=== PATIENT | male | born 1940 | race Caucasian/White ===

== ENCOUNTER → 2017-05-24 11:07 | Outpatient (CLI) | payer MEDICARE, BC, SELFPAY | PROVIDERS: Family Provider Family Medicine; PCP Family Medicine; Visit Provider Urology | DX: C61 Malignant neoplasm of prostate (principal) | CPT/HCPCS: 36415; 84153 ==

== ENCOUNTER → 2017-11-14 08:24 | Outpatient (CLI) | payer MEDICARE, BC, SELFPAY ==
[2017-11-14 09:26] LABS: PSA,Total- Diagnostic 0.55 ng/mL (0.0-4.0)
== END ==
PROVIDERS: Family Provider Family Medicine; PCP Family Medicine; Visit Provider Urology
DX: C61 Malignant neoplasm of prostate (principal)
CPT/HCPCS: 36415; 84153